=== PATIENT | female | born 1980 | race Caucasian/White ===

== ENCOUNTER 2018-01-22 11:55 | Outpatient (CLI) | payer OTHER ==
--- NOTE | 2018-01-22 20:59 | Ultrasound Report ---
Reason: POLYCYSTIC OVARIAN SYNDROME Procedure Date: 01/22/2018 Accession Number: [id number] / [id number] Procedure: US - Pelvic w/Transvaginal CPT Code: FULL RESULT: EXAM: PELVIC ULTRASOUND EXAM DATE: 01/22/2018 12:19 PM. CLINICAL HISTORY: Polycystic ovarian syndrome. COMPARISON: None. TECHNIQUE: Realtime transabdominal pelvic scan performed to identify the uterus and adnexa and as an overview of other pelvic structures, followed by transvaginal scan to provide greater detail of the uterus and adnexa, with static image documentation. FINDINGS: Uterus: 8.3 x 3.0 x 4.8 cm, volume 63 cc. Anteverted position. Normal overall size and echotexture. Masses: None. Endometrium: 3.0 mm. Normal thickness. Focal Fluid within the upper margin of the endometrial canal with AP, longitudinal and transverse dimensions of 3 x 3 x 14 mm. On longitudinal imaging this appears focal, above/proximal to the upper margin of the echogenic endometrium. Therefore, a small polyp is not excluded, although there is no internal vascularity. Cervix: Unremarkable. Right Ovary: 2.3 x 2.0 x 2.3 cm, volume 5.5 cc. Normal echotexture and blood flow. Multiple small simple follicles. Left Ovary: 3.0 x 1.6 x 2.3 cm, volume 5.8 cc. Normal echotexture and blood flow. Multiple small simple follicles. Free Fluid: None. Other: None. IMPRESSION: 1. Focal fluid at the upper margin of the endometrial canal which may be incidental or could represent some loculated fluid or a cyst. A subjacent small endometrial polyp is not excluded, although none is definitely confirmed. 2. Normal-sized ovaries with multiple small simple follicles. [facility]
== END 2018-01-22 11:56 | disposition home or self-care (01) ==
LOC: DI 11:55
PROVIDERS: ATTEND Registered Nurse
DX: E28.2 Polycystic ovarian syndrome (principal); L70.9 Acne, unspecified; N92.6 Irregular menstruation, unspecified
CPT/HCPCS: 76830; 76856